=== PATIENT | male | born 1965 | race Caucasian/White ===

== ENCOUNTER 2024-09-10 09:10 | Outpatient (RCR) | payer OTHER, SELFPAY ==
[2024-09-10 09:22] VITALS: BP 131/80
[2024-09-10 09:56] VITALS: BP 136/77
[2024-09-10 10:00] VITALS: BP 148/89
== END 2024-09-13 09:49 | disposition home or self-care (01) ==
LOC: OID 09:10
PROVIDERS: ATTENDING PHYSICIAN Internal Medicine Hematology & Oncology; PRIMARYCARE PHYSICIAN Family Medicine
DX: E83.110 Hereditary hemochromatosis (principal)
CPT/HCPCS: 99195

== ENCOUNTER 2024-12-03 13:55 | Outpatient (RCR) | payer OTHER, SELFPAY ==
[2024-12-03 14:10] VITALS: BP 163/75
[2024-12-03 14:30] VITALS: BP 130/82
[2024-12-03 14:40] VITALS: BP 133/86
== END 2024-12-31 23:59 | disposition home or self-care (01) ==
LOC: OID 13:55
PROVIDERS: ATTENDING PHYSICIAN Nurse Practitioner Adult Health; FAMILY PHYSICIAN Family Medicine
DX: E83.110 Hereditary hemochromatosis (principal)
CPT/HCPCS: 99195

== ENCOUNTER 2025-07-05 13:55 | Outpatient (RCR) | payer OTHER, SELFPAY ==
[2025-07-05 14:20] VITALS: BP 147/77
[2025-07-05 14:50] VITALS: BP 144/78
[2025-07-05 14:55] VITALS: BP 142/89
== END 2025-07-31 23:59 | disposition home or self-care (01) ==
LOC: OID 13:55
PROVIDERS: ATTENDING PHYSICIAN Nurse Practitioner Adult Health
DX: E83.110 Hereditary hemochromatosis (principal)
CPT/HCPCS: 99195

== ENCOUNTER → 2025-07-22 08:09 | Outpatient (REF) | payer OTHER, SELFPAY | LOC: RAD 08:09 | PROVIDERS: ATTENDING PHYSICIAN Family Medicine | DX: E80.6 Other disorders of bilirubin metabolism (principal) | CPT/HCPCS: 76700 ==

== ENCOUNTER 2025-09-21 14:38 | Outpatient (RCR) | payer OTHER, SELFPAY ==
[2025-09-21 14:44] VITALS: BP 142/78
[2025-09-21 15:00] VITALS: BP 141/81
[2025-09-21 15:05] VITALS: BP 143/96
== END 2025-09-30 23:59 | disposition home or self-care (01) ==
LOC: OID 14:38
PROVIDERS: ATTENDING PHYSICIAN Nurse Practitioner Adult Health; FAMILY PHYSICIAN Family Medicine
DX: E83.110 Hereditary hemochromatosis (principal)
CPT/HCPCS: 99195